=== PATIENT | male | born 1980 | race Caucasian/White ===

== ENCOUNTER 2019-06-30 17:35 | Emergency (ER) | payer BC ==
[~2019-06-30] VITALS: Ht 187.9 cm; Wt 75.7 kg
[2019-06-30] MEDS ORDERED: MEDROL DOSEPAK4 MG PO (19:00)
== END 2019-06-30 19:04 | disposition home or self-care (01) ==
LOC: ED 17:35
DX: T78.40XA Allergy, unspecified, initial encounter (principal); Z88.5 Allergy status to narcotic agent; X58.XXXA Exposure to other specified factors, initial encounter

== ENCOUNTER 2020-06-19 13:22 | Emergency (ER) | payer SELFPAY ==
[~2020-06-19] VITALS: Ht 187.9 cm; Wt 75.7 kg
[~2020-06-19 13:22] MED LIST: MEDROL DOSEPAK4 MG PO
== END 2020-06-19 14:52 | disposition home or self-care (01) ==
LOC: ED 13:22
DX: T78.49XA Other allergy, initial encounter (principal); Z88.8 Allergy status to other drugs, medicaments and biological substances; Z88.5 Allergy status to narcotic agent; Z79.899 Other long term (current) drug therapy; X58.XXXA Exposure to other specified factors, initial encounter

== ENCOUNTER 2020-06-30 08:33 | Emergency (ER) | payer SELFPAY ==
[~2020-06-30] VITALS: Ht 187.9 cm; Wt 75.7 kg
[2020-06-30 09:17] LABS: BASO % 0.4 % (0.0-1.0); EOS # 0.1 10*3/uL (0.0-0.4); EOS % 2.2 % (1.0-4.0); HEMATOCRIT 45.6 % (42.0-52.0); LYMPH # 1.8 10*3/uL (1.3-4.4); MEAN CELL VOLUME 93.8 fl (80.0-94.0); MEAN CORPUSCULAR HGB 30.9 pg (27.0-31.0); MEAN CORPUSCULAR HGB CONC 32.9 g/dl (33.0-37.0); MEAN PLATELET VOLUME 8.9 fl (9.6-12.3); MONO # 0.3 10*3/uL (0.1-1.0); MONO % 7.2 % (3.0-9.0); NEUT # 2.3 10*3/uL (2.3-7.9); NEUT % 49.8 % (47.0-73.0); PLATELET COUNT AUTOMATED 290 10*3/uL (130-400); RED BLOOD COUNT 4.86 10*6/uL (4.50-5.90); RED CELL DISTRI WIDTH 12.4 % (0-14.5); WHITE BLOOD COUNT 4.6 10*3/uL (4.8-10.8)
[2020-06-30 09:33] LABS: ALBUMIN 3.7 gm/dl (3.1-4.5); ALKALINE PHOSPHATASE 51 U/L (45-117); BUN 9 mg/dl (7-24); CHLORIDE 108 mmol/L (98-107); CREATININE 1.13 mg/dL (0.70-1.30); POTASSIUM 3.9 mmol/L (3.5-5.1); SGOT/AST 14 IU/L (3-35); SGPT/ALT 26 U/L (12-78); SODIUM 141 mmol/L (136-145)
[2020-06-30 09:35] LABS: TROPONIN I < 0.015 ng/ml (<0.045)
== END 2020-06-30 11:32 | disposition home or self-care (01) ==
LOC: ED 08:33
PROVIDERS: Emergency Medicine
DX: R11.0 Nausea (principal); Z88.5 Allergy status to narcotic agent; Z91.018 Allergy to other foods; Z79.899 Other long term (current) drug therapy

== ENCOUNTER 2020-08-28 13:46 | Emergency (ER) | payer SELFPAY ==
[~2020-08-28] VITALS: Wt 75.7 kg
[2020-08-28] MEDS ORDERED: FLONASE ALLERG9.9 ML NAS (15:08)
[2020-08-28] MEDS ORDERED: CLARITIN10 MG PO (15:08)
== END 2020-08-28 16:29 | disposition home or self-care (01) ==
LOC: ED 13:46
DX: J06.9 Acute upper respiratory infection, unspecified (principal); Z79.899 Other long term (current) drug therapy; Z88.5 Allergy status to narcotic agent